=== PATIENT | female | born 1965 | race Caucasian/White ===

== ENCOUNTER 2020-01-20 08:25 | Day surgery (SDC) | payer OTHER, SELFPAY ==
[~2020-01-20] VITALS: Ht 172.7 cm; Wt 86.2 kg
[2020-01-20] MEDS ORDERED: diphenhydrAMINE 50 MG/ML VIAL ONE (09:14)
[2020-01-20] MEDS ORDERED: MIDAZOLAM 2 MG/2 ML VIAL ONE (09:15)
[2020-01-20] MEDS ORDERED: fentaNYL citrate 0.05 MG/ML VIAL ONE (09:15)
[2020-01-20] MEDS ORDERED: MIDAZOLAM 2 MG/2 ML VIAL IVP ONE (10:00)
[2020-01-20] MEDS ORDERED: fentaNYL citrate 0.05 MG/ML VIAL IVP ONE (10:00)
[2020-01-20] MEDS ORDERED: diphenhydrAMINE 50 MG/ML VIAL IVP ONE (10:00)
== END 2020-01-20 10:20 | disposition home or self-care (01) ==
LOC: MFCC 08:25 → MOR 08:25
PROVIDERS: ATTEND Internal Medicine Gastroenterology
DX: R63.5 Abnormal weight gain (principal); K21.9 Gastro-esophageal reflux disease without esophagitis; E03.9 Hypothyroidism, unspecified; Z98.84 Bariatric surgery status; Z79.899 Other long term (current) drug therapy
CPT/HCPCS: 43235; 87426; J1200; J2250; J3010